=== PATIENT | male | born 1995 ===

== ENCOUNTER 2017-04-17 22:30 | Emergency (ER) | payer OTHER ==
[2017-04-17 22:39] VITALS: O2SAT 98
[2017-04-17] MEDS ORDERED: Lidocaine 2% Inj (20ml) INFIL ONE (23:25)
[2017-04-17] MEDS ORDERED: Bacitracin 500 Units/gm Oint Foilpak UD TOP ONE (23:25)
[2017-04-18] MEDS ORDERED: Bacitracin 500 Units/gm Oint Foilpak UD ONE (01:04)
--- NOTE | 2017-04-18 01:04 | C.PDOC ---
History Of Present Illness 22 yo male c/o laceration to the right second finger after he was a work and a metal piece fell on his hand. Notes he was wearing gloves the the time. No change in sensation. No other trauma. Tetanus not up to date. Time Seen by Provider: 04/17/17 22:36 Chief Complaint (Nursing): Abnormal Skin Integrity History Per: Patient History/Exam Limitations: no limitations Onset/Duration Of Symptoms: Mins Current Symptoms Are (Timing): Still Present Past Medical History Vital Signs: Last Vital Signs Temp 98.3 F 04/17/17 22:34 Pulse 104 H 04/17/17 22:34 Resp 17 04/17/17 22:34 BP 139/85 04/17/17 22:34 Pulse Ox 98 04/18/17 01:04 Family History: States: Unknown Family Hx - Social History Hx Alcohol Use: No Hx Substance Use: No - Immunization History Hx Tetanus Toxoid Vaccination: No Hx Influenza Vaccination: No Hx Pneumococcal Vaccination: No Review Of Systems Except As Marked, All Systems Reviewed And Found Negative. Skin: Positive for: Other (laceartion) Physical Exam - Physical Exam Appears: Well, Non-toxic, No Acute Distress Skin: Warm, Dry, Other (T shaped laceration to the R 2nd mid phalanx) Head: Atraumatic, Normacephalic Eye(s): bilateral: Normal Inspection, EOMI Nose: Normal Oral Mucosa: Moist Chest: Symmetrical Respiratory: No Accessory Muscle Use Extremity: No Normal ROM (decreased ROM secondary to pain), Tenderness, Capillary Refill (< 2 sec), Swelling Pulses: Left Radial: Normal, Right Radial: Normal Neurological/Psych: Oriented x3, Normal Speech, Normal Cognition, Normal Sensation (sensation intact distally) ED Course And Treatment O2 Sat by Pulse Oximetry: 98 Progress Note: Case discussed with Dr Sibley, service operations manager hand specialist who instructes closure with Keflex and office follow up. Finger splint applied by dental technologist. Pt was given strict instructs to call office at 9am for out pt follow up. Discussed signs of concern to return to ER . Laceration - Laceration Repair r 2nd finger Wound Length (In cm): 3 Description Of Wound: Linear, Irregular Wound Cleansed With: Betadine, Sterile Saline Anesthesia: Lidocaine 1% Wound Examination: Irrigated With Saline, No FB With Wound Exploration, No Tendon Injury With Wound Exploration Wound Closure: Suture (5 sutures loose) Suture Technique And Material Used: Interrupted Disposition - Disposition Referrals: Sharee Sibley MD [Staff Provider] - Disposition: HOME/ ROUTINE Disposition Time: :01 Condition: STABLE Additional Instructions: Call Dr Sibley after 9am today to make an appointment. Watch for signs of infection including redness, swelling and discharge. Return to ER if symptoms persist or worsen. Prescriptions: Cephalexin [cephalexin] 500 mg PO BID #14 cap Instructions: Finger Fracture (ED), Finger Laceration (ED) - Clinical Impression Clinical Impression: Finger fracture, Finger laceration
[2017-04-18] MEDS ORDERED: Tetanus/Diphtheria Toxoids 0.5 ml Syringe IM ONE (01:14)
[2017-04-18 01:36] VITALS: BP 130/71; PULSE 85; RESP 20; TEMP 98
--- NOTE | 2017-04-18 08:52 | RAD ---
PROCEDURE: Right Index finger radiographs. HISTORY: trauma COMPARISON: None available. TECHNIQUE: AP radiograph of the right hand, as well as spot oblique and lateral images of index finger were obtained. FINDINGS: RIGHT INDEX FINGER: Comminuted oblique fracture deformity of the distal aspect 2nd middle phalanx without significant displacement. Remainder of the right hand (as seen on the AP view) grossly intact. JOINTS: No dislocation. SOFT TISSUES: Soft tissue swelling and evidence of laceration. No evidence of radiopaque foreign body. OTHER FINDINGS: None. IMPRESSION: Comminuted oblique fracture deformity of the distal aspect 2nd middle phalanx without significant displacement. Soft tissue swelling and evidence of laceration.
== END 2017-04-18 01:36 | disposition home or self-care (01) ==
LOC: C.ER 22:30 → SUPCPDRO 22:30 → C.ER 04-18 01:36
DX: S61.210A Laceration without foreign body of right index finger without damage to nail, initial encounter (principal); W22.8XXA Striking against or struck by other objects, initial encounter; Y93.89 Activity, other specified; Y92.89 Other specified places as the place of occurrence of the external cause; Y99.0 Civilian activity done for income or pay